=== PATIENT | female | born 1965 | race Hispanic/Latino ===

== ENCOUNTER → 2023-12-13 06:32 | Outpatient (REF) | payer OTHER, SELFPAY | LOC: RCS 06:32 | PROVIDERS: ATTENDING PHYSICIAN Internal Medicine Interventional Cardiology | DX: R06.02 Shortness of breath (principal); R07.89 Other chest pain | CPT/HCPCS: 78452; 93017; A9500 ==

== ENCOUNTER → 2024-05-08 11:00 | Outpatient (REF) | payer OTHER, SELFPAY | LOC: DHSLP 11:00 | PROVIDERS: ATTENDING PHYSICIAN Internal Medicine | DX: G47.00 Insomnia, unspecified (principal); R06.83 Snoring | CPT/HCPCS: 95810 ==

== ENCOUNTER → 2024-08-08 10:42 | Outpatient (REF) | payer OTHER, SELFPAY | LOC: HWRCS 10:42 | PROVIDERS: ATTENDING PHYSICIAN Internal Medicine Interventional Cardiology | DX: R06.02 Shortness of breath (principal); I42.9 Cardiomyopathy, unspecified; R07.89 Other chest pain | CPT/HCPCS: 93306 ==